=== PATIENT | male | born 1970 | race Two or more races ===

== ENCOUNTER 2018-07-25 05:45 | Day surgery (SDC) | payer OTHER ==
[2018-07-25] MEDS ORDERED: RECTICARE30 GM TOP (09:09)
[2018-07-25] MEDS ORDERED: PERCOCET 5-3251 EACH PO (09:09)
== END 2018-07-25 13:30 | disposition home or self-care (01) ==
LOC: CIR.AMB 05:45
DX: K64.8 Other hemorrhoids (principal); K64.4 Residual hemorrhoidal skin tags

== ENCOUNTER 2018-08-26 16:52 | Inpatient (IN) | payer OTHER ==
[~2018-08-26] VITALS: Ht 175.3 cm; Wt 79.4 kg
[~2018-08-26 16:52] MED LIST: PERCOCET 5-3251 EACH PO; RECTICARE30 GM TOP
[2018-08-26] MEDS ORDERED: CIPRO250 MG (17:07)
--- NOTE | 2018-08-26 17:12 | NUR ---
SE RECIBE PTE ALERTA Y ORIENTADO X3 EL CUAL REFIERE VENIR POR DOLOR E INFLAMACION EN EL AREA DEL ANO. PTE REFIERE DR. MUÑOZ LE REALIZO PROCEDIMIENTO EN EL AREA PARA LOS HEMORROIDES. PTE REFIERE ESTAR TOMANDO CIPRO JONNY MEDICO NO SE LO RECETO. SE MIDEN S/V A PTE Y SE COLOCA EN TANO DE ESPERA.
--- NOTE | 2018-08-26 18:31 | NUR ---
PACIENTE ALERTA Y ORIENTADO X3, CON BUEN PATRON RESPIRATORIO Y SIGNOS VITALES ESTABLES, REFIERE MELVIN DOLOR EN EL AREA ANAL. SE ABRE VENA PATENTE Y MARYAM DE EDEMA CON ANGIO #[id number] Y SE LYNDSEY MUESTRAS BAJO MEDIDAS ASEPTICAS CMP, CBC, PT+INR, PTT Y U/A. SE ADMINISTRAN MEDICAMENTOS YOJANA ORDENADOS Y SE LYNETTE TRANQUILO EN HUI EN ESPERA DE SER REEVALUADO POR .
[2018-08-30] MEDS ORDERED: PERCOCET 5-3251 EACH PO (08:39)
[2018-08-30] MEDS ORDERED: Intestinex CAP PO (08:40)
[2018-08-30] MEDS ORDERED: POLY119PG PO (08:41)
[2018-08-30] MEDS ORDERED: FLAGYL500MG PO (08:41)
[2018-08-30] MEDS ORDERED: AMOX1TAB5 PO (08:41)
[2018-08-30] MEDS ORDERED: PROTONIX40 MG PO (08:42)
== END 2018-08-30 10:15 | disposition home or self-care (01) | DRG 346 ==
LOC: ER 16:52 → SURH 22:22 → SURG 22:22 → SURH 23:57
PROVIDERS: ADMIT Surgery
PROC: BW3GZZZ Magnetic Resonance Imaging (MRI) of Pelvic Region (ICD-10-PCS; 2018-08-26)
PROC: BW3GY0Z Magnetic Resonance Imaging (MRI) of Pelvic Region using Other Contrast, Unenhanced and Enhanced (ICD-10-PCS; 2018-08-26)
PROC: 0D9P0ZZ Drainage of Rectum, Open Approach (ICD-10-PCS; principal; 2018-08-29 22:00)
DX: K61.0 Anal abscess (principal); B95.61 Methicillin susceptible Staphylococcus aureus infection as the cause of diseases classified elsewhere; B96.29 Other Escherichia coli [E. coli] as the cause of diseases classified elsewhere
CPT/HCPCS: 72196